=== PATIENT | male | born 1960 | race Caucasian/White ===

== ENCOUNTER 2018-03-07 14:20 | Emergency (ER) | payer OTHER, MEDICAID ==
[~2018-03-07] VITALS: Ht 175.3 cm; Wt 116.2 kg
[2018-03-07 14:34] VITALS: BP 111/69
--- NOTE | 2018-03-07 16:54 | NUR ---
PT CALLED AT 1630, 1635, AND 1640. NO PATIENT REPSONSE AT ANY TIME.
== END 2018-03-07 16:40 | disposition left against medical advice (07) ==
LOC: MED 14:20
DX: R11.2 Nausea with vomiting, unspecified (principal); R19.7 Diarrhea, unspecified; R10.9 Unspecified abdominal pain; R51 Headache; R42 Dizziness and giddiness; R50.9 Fever, unspecified; Z53.21 Procedure and treatment not carried out due to patient leaving prior to being seen by health care provider